=== PATIENT | female | born 1980 | race Caucasian/White ===

== ENCOUNTER → 2019-12-01 15:53 | Outpatient (CLI) | payer BC, SELFPAY ==
--- NOTE | ~2019-12-01 | MM_ITS ---
EXAMINATION: MM screening [facility] BI w jenifer HISTORY: Screening mammogram TECHNIQUE: Craniocaudal and mediolateral oblique 3-D tomosynthesis images were obtained and synthetic 2-D images were generated. CAD analysis was submitted and interpreted. COMPARISON: 09/20/2018 bilateral digital screening mammogram BREAST PARENCHYMAL COMPOSITION: The breasts are extremely dense, which lowers the sensitivity of mamm ography. FINDINGS: There are some microcalcifications in the central and posterior mid to upper right breast o n MLO view; magnification views are recommended. Questionable mass versus summation shadow in the pos terior upper right breast on MLO view. Diagnostic right mammogram is recommended, with magnification and compression views. No suspicious mass, architectural distortion, malignant calcification, skin thickening or retraction of either breast is noted otherwise. IMPRESSION: 1. Microcalcifications and asymmetric density on the right 2. Diagnostic right mammogram is recommended, with right breast ultrasound if required BI-RADS Category 0: Incomplete: Needs additional imaging evaluation. Reviewed, dictated and finalized at location A. IMPRESSION: 1. Microcalcifications and asymmetric density on the right 2. Diagnostic right mammogram is recommended, with right breast ultrasound if r equired BI-RADS Category 0: Incomplete: Needs additional imaging evaluation.
== END ==
PROVIDERS: PCP Family Medicine; Visit Provider Family Medicine
DX: Z12.31 Encounter for screening mammogram for malignant neoplasm of breast (principal); R92.8 Other abnormal and inconclusive findings on diagnostic imaging of breast
CPT/HCPCS: 77063; 77067

== ENCOUNTER → 2019-12-19 09:38 | Outpatient (CLI) | payer BC, SELFPAY ==
--- NOTE | ~2019-12-19 | MM_ITS ---
EXAMINATION: MM diagnostic mammo unilat RT HISTORY: Right breast asymmetry and indeterminate right breast calcifications on screening mammogram TECHNIQUE: Additional 3-D tomosynthesis images of the right breast were performed and synthetic 2-D i mages were generated. CAD analysis was submitted and interpreted. COMPARISON: 12/01/2019, 09/20/2018 FINDINGS: There are grouped calcifications upper outer quadrant of the posterior third of the breast which are amorphous on the craniocaudal view and linear on the mediolateral view, consistent with mil k of calcium. No persistent asymmetry is identified with spot compression of the upper breast. IMPRESSION: 1. No mammographic evidence of malignancy. 2. Recommend routine screening mammography in one year. BI-RADS Category 2: Benign finding(s). Reviewed, dictated and finalized at location A.
== END ==
PROVIDERS: PCP Family Medicine; Visit Provider Family Medicine
DX: R92.2 Inconclusive mammogram (principal)
CPT/HCPCS: 77065

== ENCOUNTER 2020-02-21 06:38 | Outpatient (NON) | payer BC, SELFPAY ==
[2020-02-21 23:32] LABS: SARS-CoV-2 RNA PCR Negative
== END 2020-02-21 06:39 ==
PROVIDERS: PCP Family Medicine; Visit Provider Family Medicine
DX: Z20.828 Contact with and (suspected) exposure to other viral communicable diseases (principal); R51.9 Headache, unspecified
CPT/HCPCS: 87635; C9803; U0003

== ENCOUNTER → 2021-02-03 16:11 | Outpatient (CLI) | payer BC, SELFPAY ==
--- NOTE | ~2021-02-03 | MM_ITS ---
EXAMINATION: MM screening [facility] BI w jenifer HISTORY: Screening mammogram TECHNIQUE: Craniocaudal and mediolateral oblique 3-D tomosynthesis images were obtained and synthetic 2-D images were generated. CAD analysis was submitted and interpreted. COMPARISON: 12/19/2019, 12/01/2019, 09/20/2018 BREAST PARENCHYMAL COMPOSITION: The breasts are extremely dense, which lowers the sensitivity of mamm ography. FINDINGS: There is no evidence of suspicious mass, calcification, or architectural distortion to sugg est malignancy in either breast. There has been no suspicious interval change. IMPRESSION: 1. No mammographic evidence of malignancy. 2. Recommend routine screening mammography in one year. BI-RADS Category 1: Negative Reviewed, dictated and finalized at location A. ICATION TECHNICIAN
== END ==
PROVIDERS: PCP Family Medicine; Visit Provider Family Medicine
DX: Z12.31 Encounter for screening mammogram for malignant neoplasm of breast (principal)
CPT/HCPCS: 77063; 77067

== ENCOUNTER → 2022-02-06 07:16 | Outpatient (CLI) | payer BC, SELFPAY ==
--- NOTE | ~2022-02-06 | MM_ITS ---
EXAMINATION: MM screening [facility] BI w jenifer HISTORY: Screening mammogram TECHNIQUE: Craniocaudal and mediolateral oblique 3-D tomosynthesis images were obtained and synthetic 2-D images were generated. CAD analysis was submitted and interpreted. COMPARISON: 02/03/2021 bilateral screening mammogram 12/19/2019 diagnostic right mammogram 12/01/2019, 09/20/2018 bilateral screening mammogram examinations BREAST PARENCHYMAL COMPOSITION: The breasts are extremely dense, which lowers the sensitivity of mamm ography. FINDINGS: Subtle previously reported benign microcalcifications are again noted in the posterior uppe r outer right breast. Minimal bilateral breast benign calcification. There is no evidence of suspicio us mass, calcification, or architectural distortion to suggest malignancy in either breast. There has been no suspicious interval change. IMPRESSION: 1. No mammographic evidence of malignancy. 2. Recommend routine screening mammography in one year. BI-RADS Category 2: Benign finding(s). Reviewed, dictated and finalized at location A. X DEVOPS ENGINEER
== END ==
PROVIDERS: PCP Family Medicine; Visit Provider Family Medicine
DX: Z12.31 Encounter for screening mammogram for malignant neoplasm of breast (principal)
CPT/HCPCS: 77063; 77067

== ENCOUNTER 2022-02-22 17:12 | Outpatient (CLI) | payer BC, SELFPAY ==
[2022-02-22 17:55] LABS: Beta HCG Quantitative < 2.39 mIU/ML
== END 2022-02-22 17:13 | disposition home or self-care (01) ==
LOC: ANHLAB 17:14
PROVIDERS: PCP Family Medicine; Visit Provider Student in an Organized Health Care Education/Training Program
DX: N92.0 Excessive and frequent menstruation with regular cycle (principal)
CPT/HCPCS: 36415; 84702

== ENCOUNTER 2022-02-23 01:07 | Day surgery (SDC) | payer BC, SELFPAY ==
[2022-02-13 17:20] VITALS: BMI 20.7
--- NOTE | 2022-02-13 17:29 | PC.NURSE ---
Report to the Outpatient Waiting Room, entrance under the green pavilion located off [facility], at time 11:30AM on date 02-23-22. Planned Procedure Time: 1:00PM. Time changes happen often and if your time is changed the preop area will call you the afternoon before. - You and your visitor will be asked to self-screen and do not enter if you have any COVID symptoms. - Only one visitor is requested with a max of two and NO children visitors are allowed at this time. - The patient visitor may be requested to leave or wait in car when not with patient due to distancing restrictions. - A mask is optional within the hospital. Patients may have clear liquids (water, carbonated beverages, clear teas, apple juice) until 3 hours prior to surgery (10:30AM) with a maximum of 20 ounces. - No food from midnight until time of surgery Take the following medications with a SIP of water the morning of surgery: DULOXETINE Medications to discontinue per physician VITAMINS/SUPPLEMENTS Date to take last dose 02-19-22 Please no make-up, nail khmer, hairspray, perfume, deodorant, or body powder the day of surgery. No jewelry (including any body piercings) or valuables the day of surgery, leave them at home. Please take a shower or bath the night before, or the morning of, surgery with an antibacterial soap. Wear comfortable, loose fitting clothing. - Jewelry must be removed prior to entering the operating room. Rings and piercings that are not removed may be cut off. - The hospital will not accept responsibility for valuables. - Please leave all valuables, including medications, at home the day of surgery. If you are going home after surgery, a licensed yard driver must drive you home. - NO public transportation without another adult if you receive anesthesia. - We recommend that an adult stay with you for 24 hours following discharge. - We also recommend that you do not drive, make important decision, drink alcoholic beverages, or take any drugs that were not prescribed by your health care provider for at least 24 hours after your discharge time. Follow any additional instructions given to you from your surgeon. If you or anyone in your household have experienced Covid symptoms in the past week, please notify your surgeon or the nurse liaison at the phone number below for possible testing. Telephone instructions given to PATIENT and asked if any additional questions and then verbalized understanding. Patient advised to call surgeon office or pre surgery nurse liaison [phone] if any additional questions.
--- NOTE | 2022-02-22 14:38 | PM.IMHP ---
H&P: HPI History of Present Illness Date/Time: 02/22/22 14:38 Chief Complaint: Abnormal uterine bleeding Narrative: 41-year-old female who presents for hysteroscopy, D&C, possible polypectomy patient complaining of heavy vaginal bleeding. Thyroid studies were normal. Pelvic ultrasound showed a thickened endometrium at 17 mm. Ultrasound also suggests 0.3 cm endometrial polyp. Patient opted for hysteroscopy, D&C with polypectomy prior to IUD placement in office. Review of Systems Cardiovascular: Cardiovascular: Denies chest pain, Denies leg edema, Denies palpitations, Denies dyspnea and Denies dyspnea on exertion Respiratory: Respiratory: Denies cough, Denies dyspnea and Denies dyspnea on exertion Gastrointestinal: Gastrointestinal: Denies abdominal pain, Denies constipation, Denies diarrhea, Denies nausea and Denies vomiting Genitourinary: Genitourinary: Denies hematuria, Denies urinary frequency, Denies dysuria, Denies pelvic pain, Denies urinary incontinence and Denies vaginal discharge Neurologic: Reports system reviewed and no additional complaints, except as documented Psychiatric: Psychiatric: Reports no additional psychiatric complaints Endocrine: Endocrine: Denies palpitations [facility] Family History Family History (Updated 01/12/22 @ 09:11 by Toña Moore MA) Father Family history of elevated blood lipids Mother Family history of elevated blood lipids Grandparent Family history of alcoholism Family history of cardiovascular disease Family history of malignant neoplasm of ovary Sibling Adenomyosis Social History Social History (Updated 01/12/22 @ 09:08 by Toña Moore MA) Smoking status: Never smoker Second hand tobacco smoke exposure: No Alcohol intake: current Drinks per week: 2 Substance use: never Substance use type: does not use Living arrangements: with family Gender identity (if verbalized by the patient): Female Sexual Orientation (if Verbalized by the Patient): Straight or Heterosexual Spiritual care concerns: No Meds Home Medications and Allergies Home Medications Medication Instructions Recorded Confirmed Type sumatriptan succinate 50 mg tablet See Rx Instructions PO .COMPLEX 09/14/21 02/13/22 Rx #30 tabs duloxetine 60 mg capsule,delayed See Rx Instructions .Route 09/15/21 02/13/22 Rx release .COMPLEX #90 caps ferrous sulfate 300 mg (60 mg 300 mg (5 mL) PO DAILY #500 mL 10/04/21 02/13/22 Rx iron)/5 mL oral liquid calcium carb-vitamin D3 ER 600 mg 1 tablet PO DAILY 02/13/22 02/13/22 History (1,500 mg)-500 unit tablet,ER 24 hr magnesium 1 tablet PO DAILY 02/13/22 02/13/22 History multivit with minerals-iron 18 1 tablet PO DAILY 02/13/22 02/13/22 History mg-folic ac 400 mcg-vit K 25 mcg tablet (Adults Multivitamin) Allergies Allergy/AdvReac Type Severity Reaction Status Date / Time No Known Allergies Allergy Verified 02/13/22 17:21 Exam Const: General: no acute distress Eyes: EOM: EOMs intact bilaterally Neck: Neck: supple Thyroid: thyroid normal Chest: Breast/axilla inspection: normal inspection of the breasts Breast/axilla palpation: normal palpation of the breasts, normal palpation of the axillae and no axillary lymphadenopathy Resp: Effort & Inspection: normal respiratory effort Auscultation: clear to auscultation bilaterally Cardio: Rate: regular rate Rhythm: regular rhythm GI: Inspection: non-distended GI Palp: Yes Soft to palpation, No Tenderness to palpation present (GI) and No Guarding due to palpation present (GI) Auscultation: normal bowel sounds : General: No bladder normal to palpation External Female Exam: normal external appearance Speculum Exam - Vagina: normal vaginal discharge and No vaginal bleeding Speculum Exam - Cervix: nontender Bimanual exam- vagina & uterus: No bladder normal to palpation and No Cervical tenderness present OB/external & speculum: No vaginal bleeding Skin: Gen
--- NOTE | 2022-02-23 11:05 | WPDHPUPDATE1 ---
History and Physical Update Update Date/Time: 02/23/22 11:05 History and Physical has been reviewed, including an updated exam of the patient. There are NO changes in the patient's condition. Risks, benefits, and alternatives have been discussed and questions answered. Patient agrees to proceed with procedure.
[2022-02-23 12:17] VITALS: BP 95/65; PULSE 75; RESP 20; TEMP 37.4; O2SAT 100
[2022-02-23] MEDS: ACETAMINOPHEN 500 MG TABLET 1000 MG PO (12:35)
[2022-02-23] MEDS: LACTATED RINGERS 1,000 ML 30 ML IV CONT (12:40)
[2022-02-23 12:59] LABS: Hematocrit 38.3 % (37.0-47.0); Hemoglobin 12.8 g/dL (12.0-15.0)
--- NOTE | 2022-02-23 13:56 | WPDHPUPDATE1 ---
History and Physical Update Update Date/Time: 02/23/22 13:56 History and Physical has been reviewed, including an updated exam of the patient. There are NO changes in the patient's condition. Risks, benefits, and alternatives have been discussed and questions answered. Patient agrees to proceed with procedure.
--- NOTE | 2022-02-23 14:15 | WPDANESEPPF ---
Anes - Initial Pre Proc Eval Procedure: Operation Date: 02/23/22 13:30 Proposed Procedures p Hysteroscopy Dilation and Curettage with Polypectomy - Jose Alfredo Gonsalez MD Date/Time: 02/23/22 14:15 Surgeon: Jose Alfredo Gonsalez MD Pre Op Diagnosis: Endometrial Polyp Patient Data Age: 41 Gender: F Height: 1.7 m Weight: 56 kg Last Vital Signs Temp 99.4 F 02/23/22 12:17 Pulse 75 02/23/22 12:17 Resp 20 02/23/22 12:17 BP 95/65 L 02/23/22 12:17 Pulse Ox 100 02/23/22 12:17 O2 Del Method Room Air 02/23/22 12:17 Allergies Allergy/AdvReac Type Severity Reaction Status Date / Time No Known Allergies Allergy Verified 02/23/22 12:31 Home Medications Medication Instructions Recorded Confirmed Type sumatriptan succinate 50 mg tablet See Rx Instructions PO .COMPLEX 09/14/21 02/23/22 Rx #30 tabs duloxetine 60 mg capsule,delayed See Rx Instructions .Route 09/15/21 02/23/22 Rx release .COMPLEX #90 caps ferrous sulfate 300 mg (60 mg 300 mg (5 mL) PO DAILY #500 mL 10/04/21 02/23/22 Rx iron)/5 mL oral liquid calcium carb-vitamin D3 ER 600 mg 1 tablet PO DAILY 02/13/22 02/23/22 History (1,500 mg)-500 unit tablet,ER 24 hr magnesium 1 tablet PO DAILY 02/13/22 02/23/22 History multivit with minerals-iron 18 1 tablet PO DAILY 02/13/22 02/23/22 History mg-folic ac 400 mcg-vit K 25 mcg tablet (Adults Multivitamin) Laboratory Tests 02/23/22 12:52 Hgb 12.8 g/dL g/dL (12.0-15.0) Hct 38.3 % % (37.0-47.0) Patient hx anesthesia problems: none Family hx anesthesia problems: none Results Review: All pre-operative results and documents have been reviewed as part of the pre-operative evaluation. [facility] Family History Family History (Updated 01/12/22 @ 09:11 by Toña Moore MA) Father Family history of elevated blood lipids Mother Family history of elevated blood lipids Grandparent Family history of alcoholism Family history of cardiovascular disease Family history of malignant neoplasm of ovary Sibling Adenomyosis Social History Social History (Updated 01/12/22 @ 09:08 by Toña Moore MA) Smoking status: Never smoker Second hand tobacco smoke exposure: No Alcohol intake: current Drinks per week: 2 Substance use: never Substance use type: does not use Living arrangements: with family Gender identity (if verbalized by the patient): Female Sexual Orientation (if Verbalized by the Patient): Straight or Heterosexual Spiritual care concerns: No Anes - Eval Final PreProcedure Day of Procedure 02/23/22 14:15 Patient weight: normal Heart: regular rate and rhythm Lungs: clear to auscultation Airway: Mallampati scale class II Neurological: alert and oriented Last oral intake: >/= 8 hours ASA classification: II Emergent: no Anesthetic plan: proceed Anesthesia type and monitoring: general GIVS and standard monitoring Results Review: All pre-operative results and documents have been reviewed as part of the pre-operative evaluation. Informed Consent: The patient's anesthetic plan and its attendant risks and benefits were discussed with the patient/family/POA. Questions were solicited and answers provided to the satisfaction of the patient/family/POA.
[2022-02-23] MEDS: LIDOCAINE HCL 1% PF 30 ML VIAL 20 ML INFILTRATE (14:32)
--- NOTE | 2022-02-23 14:46 | W.PM.PROC2 ---
Procedure Note - Detailed Date of Procedure 02/23/22 Pre-op Diagnosis Endometrial Polyp Post-op Diagnosis Same Procedure Performed paracervical block hysteroscopy dilation & curettage polypectomy Surgeon Jose Alfredo Gonsalez MD Anesthesia General Indications abnormal uterine bleeding Findings endometrial polyp noted originating from the left fundal endometrium. Normal tubal ostia bilaterally Description of Procedure Jonelle Phillips presents for hysteroscopy, D&C, polypectomy. She was counseled as to the indications, risks, benefits, and alternatives to surgery, with the risks including bleeding, infection, damage to surrounding organs, VTE, and complications of anesthesia. Her verbal and written consent was obtained. PROCEDURE: The patient was taken to the OR and general anesthesia induced. She was prepped and draped in Min stirrups with support of the back and bilateral lower extremities. I/O catheterization performed of the bladder. The above findings were noted. Infiltration with 1% lidocaine at the 3 and 9 o'clock cervical positions was performed. A single tooth tenaculum was placed on the anterior lip of the cervix. The cervix was dilated with sequential Ibeth dilators. Hysteroscopy, using a normal saline medium, was performed and showed the above findings. The endometrial lining was visualized and a fundal endometrial polyp found. The Myosure device was then used to remove the polyp and sample the endometrial lining, restoring a normal appearing endometrial cavity. The tissue was sent to pathology. Sharp uterine curettage was then performed and tissue placed on Telfa. The tenaculum was removed and hemostasis was observed. The patient tolerated the procedure well. Sponge, lap, and needle counts were correct. The patient was taken to the recovery room in stable condition. Estimated Blood Loss 10 Drains No Packing No Pathology Yes (endometrial curettings ) Complications No immediate complications Condition Stable Disposition PACU [facility] Billing Surgery - Charge Forward: Surgery Billing
[2022-02-23 15:01] VITALS: BP 96/47; PULSE 78; RESP 14; O2SAT 100
[2022-02-23 15:30] VITALS: BP 118/83; PULSE 75; RESP 14; O2SAT 100
[2022-02-23 15:55] VITALS: BP 115/82; PULSE 75; RESP 14
== END 2022-02-23 16:04 | disposition home or self-care (01) ==
PROVIDERS: PCP Family Medicine; Visit Provider Student in an Organized Health Care Education/Training Program
PROC: 0U5B8ZZ Destruction of Endometrium, Via Natural or Artificial Opening Endoscopic (ICD-10-PCS; CPT 58563; principal; 2022-02-23 13:30)
DX: N93.9 Abnormal uterine and vaginal bleeding, unspecified (principal); N84.0 Polyp of corpus uteri
CPT/HCPCS: 58558; 36415; 85014; 85018; 88305; A9270; J2250; J2704; J3010; J7030; J7120

== ENCOUNTER 2022-02-28 18:07 | Emergency (ER) | payer BC, SELFPAY ==
--- NOTE | ~2022-02-28 | US_ITS ---
EXAMINATION: US transvaginal DATE: 02/28/2022 23:11 INDICATION: Intrauterine device placement. TECHNIQUE: Multiple transvaginal sonographic images of the pelvis were obtained. COMPARISON: Ultrasound 01/16/2022 FINDINGS: The uterus measures 10.8 x 5.1 x 6.8 cm. There is no free fluid in the pelvis. The endometrial comple x measures 24 mm in thickness with fluid and material of heterogeneous echogenicity. There is an intr auterine device in the lower uterine segment. The right ovary measures 4.4 x 2.0 x 2.0 cm. The left o vary measures 4.4 x 1.8 x 1.9 cm. IMPRESSION: 1. Intrauterine device in abnormal position in the lower uterine segment. 2. Thickened endometrial complex with fluid and heterogeneous material, likely hematoma. Reviewed, dictated and finalized at location A. L HANDLER
[2022-02-28 18:18] VITALS: BP 111/72; PULSE 87; RESP 14; TEMP 36.6; O2SAT 98
[2022-02-28 18:46] LABS: Basophils Absolute Auto 0.1 K/mm3 (0.0-0.1); Basophils Percent Auto 1.1 % (0.2-1.2); Eosinophils Absolute Auto 0.1 K/mm3 (0-0.3); Eosinophils Percent Auto 1.9 % (0-4.4); Hematocrit 33.3 % (37.0-47.0); Immature Granulocyte Absolute 0.01 K/mm3 (0.00-0.031); Immature Granulocyte Percent A 0.2 % (0-0.5); Lymphocytes Absolute Auto 2.58 K/mm3 (0.9-3.2); Lymphocytes Percent Auto 40.3 % (18.3-44.2); Mean Corpuscular Hemoglobin 30.4 pg (26-34); Monocytes Absolute Auto 0.3 K/mm3 (0.1-0.6); Monocytes Percent Auto 5.3 % (2.6-8.5); Neutrophils Absolute Auto 3.3 K/mm3 (1.3-6.7); Neutrophils Percent Auto 51.2 % (45.5-73.1); Platelet Count Result 215 k/mm3 (150-375); Red Blood Count 3.62 M/mm3 (4.2-5.4); Red Cell Distribution Width 12.9 % (11.5-14.5); White Blood Count 6.4 K/mm3 (4.5-10.0)
[2022-02-28 21:32] VITALS: BP 113/85; PULSE 73; RESP 20; O2SAT 100
--- NOTE | 2022-02-28 22:15 | ED.GENADULT ---
HPI - General Adult General Chief complaint: Vaginal Bleeding Stated complaint: vaginal bleeding Time Seen by Provider: 02/28/22 21:25 History of Present Illness HPI narrative: This is a 41-year-old female presenting ED with chief complaint of vaginal bleeding. The patient had a D&C and polyp removed on of last week. She had been doing well since then until she had a Mirena placed yesterday. Today at approximately 12:00 p.m. patient started experiencing vaginal bleeding and went through a pad about every 30 minutes. Patient notes that the over the last 2 hours that the bleeding has slowed down. The patient did have some crampy abdominal pain but that has since resolved. Patient denies shortness of breath, dizziness lightheadedness or fatigue. She is not on blood thinners. She has no bleeding disorders. Patient's OBGYN is Dr. Gonsalez Related Data Home Medications Medication Instructions Recorded Confirmed calcium carb-vitamin D3 ER 600 mg 1 tablet PO DAILY 02/13/22 02/23/22 (1,500 mg)-500 unit tablet,ER 24 hr magnesium 1 tablet PO DAILY 02/13/22 02/23/22 multivit with minerals-iron 18 1 tablet PO DAILY 02/13/22 02/23/22 mg-folic ac 400 mcg-vit K 25 mcg tablet (Adults Multivitamin) Allergies Allergy/AdvReac Type Severity Reaction Status Date / Time No Known Allergies Allergy Verified 02/28/22 18:22 Review of Systems Review of Systems: CONSTITUTIONAL: Denies night sweats. EYES: No eye pain ENT: Denies rhinorrhea CARDIOVASCULAR: Denies palpitations RESPIRATORY: Denies hemoptysis GASTROINTESTINAL: Denies hematemesis GENITOURINARY: Denies hematuria. SKIN: Denies rash MUSCULOSKELETAL: Denies myalgia. NEUROLOGIC: Denies weakness. PSYCHIATRIC: Denies delusions PMFSH Past Medical History Medical History Encounter for IUD insertion Encounter for screening for bacterial sexually transmitted disease Family History Family History Father Family history of elevated blood lipids Mother Family history of elevated blood lipids Grandparent Family history of alcoholism Family history of cardiovascular disease Family history of malignant neoplasm of ovary Sibling Adenomyosis Social History Social History Smoking status: Never smoker Second hand tobacco smoke exposure: No Alcohol intake: current Drinks per week: 2 Substance use: never Substance use type: does not use Gender identity (if verbalized by the patient): Female Sexual Orientation (if Verbalized by the Patient): Straight or Heterosexual Spiritual care concerns: No Exam Narrative: APPEARANCE: No apparent distress. patient's plain pleasant during the interview. Head: atraumatic. EYES: EOMI, NOSE: Atraumatic NECK: Trachea midline RESPIRATORY: No increased rate of breathing, CARDIOVASCULAR: RRR, ABDOMINAL: Non-distended , nontender, no guarding or rebound MUSCULOSKELETAl: No obvious deformities NEURO: Alert. Moving 4/4 extremities SKIN:: Warm, dry. Normal color PSYCHIATRIC: Normal affect Course Vital Signs Vital signs: Vital Signs Temperature 97.9 F 02/28/22 18:18 Pulse Rate 87 02/28/22 18:18 Respiratory Rate 14 02/28/22 18:18 Blood Pressure 111/72 02/28/22 18:18 Pulse Oximetry 98 02/28/22 18:18 Oxygen Delivery Room Air 02/28/22 18:18 Temperature 97.9 F 02/28/22 18:18 Pulse Rate 68 03/01/22 01:51 Respiratory Rate 16 03/01/22 01:51 Blood Pressure 101/67 03/01/22 01:51 Pulse Oximetry 100 03/01/22 01:51 Oxygen Delivery Room Air 02/28/22 18:18 Medical Decision Making MDM Narrative Medical decision making narrative: this is a 41-year-old female presenting ED with vaginal bleeding after IUD placement. Transvaginal ultrasound has been ordered to evaluate for IUD placement. Pelvic exam will be
[2022-02-28] MEDS: SODIUM CHLORIDE 0.9% IV 1,000 ML 999 ML IV CONT (22:35)
[2022-02-28] MEDS: ACETAMINOPHEN 500 MG TABLET 1000 MG PO (22:36)
[2022-02-28 22:47] LABS: Basophils Absolute Auto 0.1 K/mm3 (0.0-0.1); Basophils Percent Auto 1.3 % (0.2-1.2); Eosinophils Absolute Auto 0.1 K/mm3 (0-0.3); Hematocrit 35.1 % (37.0-47.0); Hemoglobin 11.6 g/dL (12.0-15.0); Immature Granulocyte Absolute 0.01 K/mm3 (0.00-0.031); Immature Granulocyte Percent A 0.1 % (0-0.5); Lymphocytes Percent Auto 43.7 % (18.3-44.2); Mean Corpuscular Hemoglobin 30.6 pg (26-34); Mean Corpuscular Volume 92.6 fl (80-100); Mean Platelet Volume 10.2 fl (7.4-10.4); Monocytes Absolute Auto 0.4 K/mm3 (0.1-0.6); Monocytes Percent Auto 6.1 % (2.6-8.5); Neutrophils Absolute Auto 3.3 K/mm3 (1.3-6.7); Neutrophils Percent Auto 46.8 % (45.5-73.1); Platelet Count Result 220 k/mm3 (150-375); Red Blood Count 3.79 M/mm3 (4.2-5.4); White Blood Count 7.1 K/mm3 (4.5-10.0)
[2022-02-28 22:50] LABS: Add Urine Microscopic? YES; Appearance Urine Clear (Clear); Bilirubin Urine Negative (Negative); Blood Urine 1+ (Negative); Color Urine Light Yellow (Yellow); Glucose Urine UA Negative (Negative); Ketones Urine Negative (Negative); Leukocyte Esterase Ur Negative LEU/UL (Negative); Nitrate Urine Negative (Negative); Protein Urine Negative (Negative); Urobilinogen Urine 0.2 mg/dL (<2.0); pH Urine 7.5 (5.0-9.0)
[2022-02-28 22:54] LABS: Squamous Epithelial Cell Urine Rare /hpf (Few); WBC Urine 0-3 /hpf
[2022-02-28 23:00] LABS: INR 1.2; Partial Thromboplastin Time 31.4 SECONDS (22.3-36.8); Prothrombin Time 14.3 Seconds (11.1-14.7)
[2022-02-28 23:18] VITALS: BP 112/66; PULSE 74; RESP 20; O2SAT 100
[2022-03-01 01:51] VITALS: BP 101/67; PULSE 68; RESP 16; O2SAT 100
[2022-03-01 02:59] LABS: Hematocrit 31.4 % (37.0-47.0); Hemoglobin 10.5 g/dL (12.0-15.0)
[2022-03-01 03:56] VITALS: BP 102/57; PULSE 64; RESP 14; O2SAT 100
== END 2022-03-01 03:58 | disposition home or self-care (01) ==
PROVIDERS: Emergency Medicine; Emergency Provider Emergency Medicine; PCP Family Medicine
DX: N93.9 Abnormal uterine and vaginal bleeding, unspecified (principal); T83.83XA Hemorrhage due to genitourinary prosthetic devices, implants and grafts, initial encounter
CPT/HCPCS: 36415; 76830; 81001; 81025; 85014; 85018; 85025; 85610; 85730; 96360; 99284; A9270; J7030

== ENCOUNTER → 2023-05-07 13:24 | Outpatient (CLI) | payer BC, SELFPAY ==
--- NOTE | ~2023-05-07 | XR_ITS ---
Supine and upright views of the abdomen Clinical history: Displaced IUD Findings: Bowel gas pattern is nonspecific. No evidence for obstruction or free air. No abnormal mass lesion or calcification is seen. Osseous structures are intact. Impression: No significant abnormality is seen. No IUD visualized. Reviewed, dictated and finalized at [facility]. E WORKER Impression: No significant abnormality is seen. No IUD visualized.
== END ==
PROVIDERS: PCP Student in an Organized Health Care Education/Training Program; Visit Provider Student in an Organized Health Care Education/Training Program
DX: T83.32XA Displacement of intrauterine contraceptive device, initial encounter (principal); Y83.8 Other surgical procedures as the cause of abnormal reaction of the patient, or of later complication, without mention of misadventure at the time of the procedure
CPT/HCPCS: 74021

== ENCOUNTER → 2023-05-16 16:16 | Outpatient (CLI) | payer BC, SELFPAY ==
--- NOTE | ~2023-05-16 | MM_ITS ---
EXAMINATION: MM screening juan diego BI w jenifer HISTORY: Screening TECHNIQUE: Craniocaudal and mediolateral oblique 3-D tomosynthesis images were obtained and synthetic 2-D images were generated. CAD analysis was submitted and interpreted. COMPARISON: Comparison to multiple prior studies sequentially, with oldest reviewed study dated 07/2018. BREAST PARENCHYMAL COMPOSITION: Dense: The breasts are extremely dense, which lowers the sensitivity of mammography. FINDINGS: There is no evidence of suspicious mass, calcification, or architectural distortion to sugg est malignancy in either breast. There has been no suspicious interval change. IMPRESSION: 1. No mammographic evidence of malignancy. 2. Recommend routine screening mammography in one year. BI-RADS Category 1: Negative Reviewed, dictated and finalized at location A. GER HOME IMPROVEMENT
== END ==
PROVIDERS: PCP Family Medicine; Visit Provider Family Medicine
DX: Z12.31 Encounter for screening mammogram for malignant neoplasm of breast (principal)
CPT/HCPCS: 77063; 77067

== ENCOUNTER 2023-08-21 15:07 | Outpatient (CLI) | payer BC, SELFPAY ==
--- NOTE | ~2023-08-21 | XR_ITS ---
EXAMINATION: XR chest 2V Exam Date/Time: 08/21/2023 15:09 CDT HISTORY: R05.3 - Chronic cough Comparison: None. RESULT: Lines, tubes, and devices: None. Lungs and pleura: Increased parenchymal volume, with increased AP diameter. No focal consolidation, p leural effusion, or pneumothorax. Cardiomediastinal silhouette: Stable. Other: No acute osseous or upper abdominal finding. IMPRESSION: No acute cardiopulmonary process. Possible emphysematous change. Reviewed, dictated and finalized at location K.
== END 2023-08-21 15:08 ==
LOC: GOSHIMG 15:08
PROVIDERS: PCP Family Medicine; Visit Provider Family Medicine
DX: R05.3 Chronic cough (principal)
CPT/HCPCS: 71046

== ENCOUNTER 2023-09-03 14:34 | Outpatient (CLI) | payer BC, SELFPAY ==
--- NOTE | 2023-09-04 13:41 | P.PCNPFT_ITS ---
PFT Procedure Performed PFT Procedure Performed Spirometry with Pre/Post Bronchodilator Plethysmography (Lung Vol) Diffusing Cap (DLCO) Flow Vol Loop PFT Interpretation Lung volumes were measured using the body plethysmography method. Most lung volumes are larger than the corresponding predicted values, and it is unclear whether this is due to measurement error or a true increase in lung volumes. However, the normal findings of spirometry do not support lung hyperinflation typically seen in patients with obstructive airway disease. Clinical correlation and/or repeat measurement lung volumes is advised. Spirometry showed normal expiratory flow rates and a normal FEV1 to FVC ratio of 76%. There was no si gnificant increase in expiratory flow rates following the administration of a bronchodilator. Lung diffusion capacity is within the normal range at 107% of the predicted value. The flow volume loop is unremarkable. Impression: Spirometry and lung diffusion capacity are within the normal range. Increased lung volumes.
== END 2023-09-03 14:35 | disposition home or self-care (01) ==
LOC: ANHPFT 14:37
PROVIDERS: PCP Family Medicine; Visit Provider Family Medicine
DX: R05.3 Chronic cough (principal)
CPT/HCPCS: 94060; 94726; 94729

== ENCOUNTER 2024-03-06 16:21 | Outpatient (CLI) | payer BC, SELFPAY ==
--- NOTE | ~2024-03-06 | XR_ITS ---
EXAMINATION: XR chest 2V 03/06/2024 16:30 INDICATION: Cough PROCEDURE: 2 view chest COMPARISON: 08/21/2023 FINDINGS: The lungs are clear. The lungs are hyperinflated which is consistent with, but not diagnost ic of chronic obstructive pulmonary disease. The cardiomediastinal silhouette is within normal limit s. There are no pleural effusions. There is no pneumothorax suspected. IMPRESSION: 1: NO ACUTE CARDIOPULMONARY DISEASE. Reviewed, dictated and finalized at location B. ANIC HELPER
--- NOTE | ~2024-03-06 | XR_ITS ---
EXAMINATION: XR_[id number]_CR DATE: 03/06/2024 16:30 INDICATION: Right neck pain. Right arm numbness. TECHNIQUE: 3 views of cervical spine were obtained. COMPARISON: None. FINDINGS: There is kyphosis of upper cervical spine. Vertebral body heights are normal. There is mild ly decreased disc height at C5-C6. At C5-C6, there is mild right and moderate left uncovertebral join t osteoarthritis. There is multilevel mild facet joint osteoarthritis. There is mild central canal st enosis at C5-C6. No prevertebral soft tissue swelling. IMPRESSION: 1. Mild cervical spondylosis. Reviewed, dictated and finalized at location A. ETING RESEARCH ANALYST
== END 2024-03-06 16:22 | disposition home or self-care (01) ==
LOC: GOSHIMG 16:23
PROVIDERS: PCP Family Medicine; Visit Provider Student in an Organized Health Care Education/Training Program
DX: M47.812 Spondylosis without myelopathy or radiculopathy, cervical region (principal); R05.9 Cough, unspecified
CPT/HCPCS: 71046; 72040

== ENCOUNTER 2025-02-10 10:36 | Outpatient (CLI) | payer BC, SELFPAY ==
--- NOTE | ~2025-02-10 | MM_ITS ---
EXAMINATION: MM screening [facility] BI w jenifer HISTORY: Screening TECHNIQUE: Craniocaudal and mediolateral oblique 3-D tomosynthesis images were obtained and synthetic 2-D images were generated. CAD analysis was submitted and interpreted. COMPARISON: Comparison to multiple prior studies sequentially, with oldest reviewed study dated 09/20/2018. BREAST PARENCHYMAL COMPOSITION: Dense: The breasts are extremely dense, which lowers the sensitivity of mammography. FINDINGS: There is no evidence of suspicious mass, calcification, or architectural distortion to suggest malignancy in either breast. There has been no suspicious interval change. IMPRESSION: 1. No mammographic evidence of malignancy. 2. Recommend routine screening mammography in one year. BI-RADS Category 1: Negative Reviewed, dictated and finalized at location O. ARCH ASSOCIATE PROFESSOR
== END 2025-02-10 10:37 | disposition home or self-care (01) ==
LOC: MICIMG 10:37
PROVIDERS: PCP Family Medicine; Visit Provider Family Medicine
DX: Z12.31 Encounter for screening mammogram for malignant neoplasm of breast (principal)
CPT/HCPCS: 77063; 77067